=== PATIENT | female | born 1990 | race American Indian/Alaskan Native ===

== ENCOUNTER 2017-12-01 10:20 | Emergency (ER) | payer OTHER ==
[~2017-12-01] VITALS: Ht 160 cm; Wt 54.4 kg
[~2017-12-01 10:20] MED LIST: BUSPAR5 MG PO; BUSPIRONE 10 MG; CLONAZEPAM1 MG PO; GEODON60 MG; LAMICTAL100 MG PO; LAMICTAL200 MG PO; LAMISTAL; PAXIL CR37.5 MG; PRENATAL 19 TA1 EACH PO; RESTORIL30 MG PO; RESTORIL7.5 MG PO; ZIPREXA; ZOLOFT25 MG PO
[2017-12-01] MEDS ORDERED: TUSSI PRES-B L120 M1 PO (12:30)
[2017-12-01] MEDS ORDERED: ZITHROMAX TRI-500 MG PO (12:30)
== END 2017-12-01 12:33 | disposition home or self-care (01) ==
LOC: ER 10:20
DX: B34.9 Viral infection, unspecified (principal)

== ENCOUNTER 2019-07-10 09:00 | Emergency (ER) | payer OTHER ==
[~2019-07-10] VITALS: Ht 160 cm; Wt 52.2 kg
[~2019-07-10 09:00] MED LIST changes: +TUSSI PRES-B L120 M1 PO; +ZITHROMAX TRI-500 MG PO
== END 2019-07-10 13:57 | disposition home or self-care (01) ==
LOC: ER 09:00
DX: E86.0 Dehydration (principal)

== ENCOUNTER 2019-08-12 14:19 | Outpatient (CLI) | payer OTHER | END 2019-08-12 15:02 | disposition home or self-care (01) | LOC: SONOGRAMA 14:19 | DX: N60.11 Diffuse cystic mastopathy of right breast (principal); N60.12 Diffuse cystic mastopathy of left breast ==

== ENCOUNTER → 2021-01-27 13:54 | Outpatient (CLI) | payer OTHER | END | disposition home or self-care (01) | LOC: EKG 13:54 | PROVIDERS: ATTEND Surgery Plastic and Reconstructive Surgery | DX: Z01.811 Encounter for preprocedural respiratory examination (principal); Z01.810 Encounter for preprocedural cardiovascular examination; R07.89 Other chest pain ==

== ENCOUNTER 2022-09-07 08:57 | Outpatient (CLI) | payer OTHER | END 2022-09-07 09:05 | disposition home or self-care (01) | LOC: SONOGRAMA 08:57 | PROVIDERS: ATTEND Internal Medicine Gastroenterology | DX: R10.9 Unspecified abdominal pain (principal) ==

== ENCOUNTER 2022-12-29 10:09 | Outpatient (CLI) | payer OTHER | END 2022-12-29 10:17 | disposition home or self-care (01) | LOC: SONOGRAMA 10:09 | PROVIDERS: ATTEND Obstetrics & Gynecology | DX: N60.11 Diffuse cystic mastopathy of right breast (principal); N60.12 Diffuse cystic mastopathy of left breast ==

== ENCOUNTER 2023-03-10 14:23 | Outpatient (CLI) | payer OTHER | END 2023-03-10 14:32 | disposition home or self-care (01) | LOC: RAD 14:23 | PROVIDERS: ATTEND Physical Medicine & Rehabilitation | DX: M54.2 Cervicalgia (principal); M54.59 Other low back pain ==

== ENCOUNTER 2023-08-14 11:29 | Emergency (ER) | payer OTHER ==
[~2023-08-14] VITALS: Ht 160 cm; Wt 54.4 kg
[2023-08-14] MEDS ORDERED: TUSNEL LIQUID178 ML PO (15:06)
[2023-08-14] MEDS ORDERED: DOLOGEN CAPLET1 EACH PO (15:06)
[2023-08-14] MEDS ORDERED: OSEL75CA PO (15:06)
[2023-08-14] MEDS ORDERED: ONDANSETRON ODT8 MG PO (15:07)
== END 2023-08-14 15:22 | disposition home or self-care (01) ==
LOC: ER 11:29
DX: J10.1 Influenza due to other identified influenza virus with other respiratory manifestations (principal); Z20.822 Contact with and (suspected) exposure to COVID-19

== ENCOUNTER 2023-10-24 11:40 | Outpatient (CLI) | payer OTHER ==
[~2023-10-24 11:40] MED LIST changes: +DOLOGEN CAPLET1 EACH PO; +ONDANSETRON ODT8 MG PO; +OSEL75CA PO; +TUSNEL LIQUID178 ML PO
== END 2023-10-24 13:08 | disposition home or self-care (01) ==
LOC: SONOGRAMA 11:40
PROVIDERS: ATTEND Internal Medicine
DX: N20.0 Calculus of kidney (principal); Z12.31 Encounter for screening mammogram for malignant neoplasm of breast

== ENCOUNTER 2023-11-20 09:01 | Outpatient (CLI) | payer OTHER | END 2023-11-20 09:19 | disposition home or self-care (01) | LOC: TOM 09:01 | DX: D18.00 Hemangioma unspecified site (principal) ==

== ENCOUNTER 2024-07-25 09:59 | Outpatient (CLI) | payer OTHER | END 2024-07-25 10:45 | disposition home or self-care (01) | LOC: SONOGRAMA 09:59 | PROVIDERS: ATTEND Internal Medicine | DX: N20.0 Calculus of kidney (principal); D18.03 Hemangioma of intra-abdominal structures ==

== ENCOUNTER 2025-05-19 08:52 | Outpatient (CLI) | payer OTHER | END 2025-05-19 09:11 | disposition home or self-care (01) | LOC: RAD 08:52 | PROVIDERS: ATTEND Internal Medicine | DX: M25.511 Pain in right shoulder (principal) ==

== ENCOUNTER 2025-05-26 09:33 | Outpatient (CLI) | payer OTHER | END 2025-05-26 09:40 | disposition home or self-care (01) | LOC: TOM 09:33 | PROVIDERS: ATTEND Internal Medicine | DX: M54.40 Lumbago with sciatica, unspecified side (principal); R10.0 Acute abdomen ==